=== PATIENT | female | born 2005 | race Caucasian/White ===

== ENCOUNTER 2024-11-27 11:02 | Emergency (ER) | payer MEDICAID ==
[~2024-11-27] VITALS: Ht 175.3 cm; Wt 116.0 kg
[2024-11-27] MEDS: diazepam 5mg tablet PO ONE (11:27)
[2024-11-27] MEDS: ketorolac trometh 30MG/ML vial 30 MG/ML VIAL IM ONE (11:29)
[2024-11-27] MEDS: oxyCODONE IR 5mg (immed. release) tablet PO ONE (13:37)
[2024-11-27] MEDS ORDERED: diazepam 5mg tablet PO ONE (14:50)
[2024-11-27] MEDS ORDERED: oxyCODONE IR 5mg (immed. release) tablet PO ONE (14:50)
[2024-11-27] MEDS ORDERED: ondansetron 4mg rapidly disintigrating tab PO ONE (14:55)
[2024-11-27 15:01] VITALS: BP 131/86; PULSE 86; RESP 16; O2SAT 98
[2024-11-27] MEDS ORDERED: METH-798 PO (16:37)
[2024-11-27] MEDS ORDERED: GABA-530 PO (16:37)
[2024-11-27] MEDS ORDERED: SENN-202 PO (16:37)
[2024-11-27] MEDS ORDERED: NAPR-56 PO (16:37)
[2024-11-27] MEDS ORDERED: PER5325T PO (16:37)
[2024-11-27 16:57] VITALS: TEMP 98.7
== END 2024-11-27 17:03 | disposition home or self-care (01) ==
LOC: ER 11:02
DX: S22.080A Wedge compression fracture of T11-T12 vertebra, initial encounter for closed fracture (principal); S32.010A Wedge compression fracture of first lumbar vertebra, initial encounter for closed fracture; S32.2XXA Fracture of coccyx, initial encounter for closed fracture; W22.09XA Striking against other stationary object, initial encounter; Y93.23 Activity, snow (alpine) (downhill) skiing, snowboarding, sledding, tobogganing and snow tubing; Y92.89 Other specified places as the place of occurrence of the external cause; Y99.8 Other external cause status
CPT/HCPCS: 29799; 72131; 72148; 96372; 99285; J1885